=== PATIENT | male | born 1990 | race Caucasian/White ===

== ENCOUNTER 2017-03-11 16:59 | Emergency (ER) | payer SELFPAY ==
[2017-03-11] MEDS ORDERED: LACTATED RINGERS 1,000 ML IVS ONE (17:03)
--- NOTE | 2017-03-11 17:04 | ED.PDOC ---
History of Present Illness - General Time Seen by Provider: 03/11/17 17:01 - History of Present Illness Allergies/Adverse Reactions: Allergies Sulfa Drugs Allergy (Unknown, Verified 01/22/13 09:36) Departure - Departure Disposition: Discharge to Home or Self Care
--- NOTE | 2017-03-11 17:44 | ED.PDOC ---
History of Present Illness - General Chief Complaint: GI Problem Stated Complaint: nausea and vomiting Time Seen by Provider: 03/11/17 17:01 Source: RN notes reviewed, Vital Signs reviewed, police Exam Limitations: clinical condition - History of Present Illness Initial Comments: Keyur Magana 26 y/o male under police custody after he was found to laying down in the middle of the street somebody noticed it and police officers were called and check him and he was noted to be confused after he was questioned by policemen and police noted his eyes were both dilated.The patient on questioning stated that he had diarrhea 2 days ago and feels dehydrated.Denies abusing illicit durgs or alcohol intoxication .he admits smoking marijuana occassionally. Timing/Duration: just prior to arrival Severity: moderate Associated Symptoms: denies symptoms Allergies/Adverse Reactions: Allergies Sulfa Drugs Allergy (Unknown, Verified 03/11/17 17:17) Review of Systems - Review of Systems Unable to Obtain Due To: clinical condition Past Medical History (General) - Patient Medical History Hx Other PMH: Yes - bipolar disorder Surgical History: other - orif left ankle - Vaccination History Hx Tetanus, Diphtheria Vaccination: No Hx Influenza Vaccination: No Hx Pneumococcal Vaccination: No Immunizations Up to Date: No - Social History Hx Tobacco Use: Yes Cigarettes Packs Per Day: 1 Hx Alcohol Use: No Hx Substance Use: No Hx Substance Use Treatment: No Hx Depression: No - Activities of Daily Living Hospice Agency (if applicable):: None - Female History Patient is a Female of Child Bearing Age (10 -59 yrs old): No Patient : No Family Medical History - Family History Mother Family History: Unknown Physical Exam - Physical Exam General Appearance: Alert, Comfortable, No apparent distress, Other - cooperative Eyes, Ears, Nose, Throat Exam: normal ENT inspection, TMs normal, pharynx normal , other - both pupils dilated 6mm Neck: full range of motion, supple, normal inspection Respiratory: chest non-tender, lungs clear, normal breath sounds, no respiratory distress Cardiovascular/Chest: normal peripheral pulses, regular rate, rhythm, no edema, no gallop, no JVD, no murmur Peripheral Pulses: radial,right: 2+, radial,left: 2+ Gastrointestinal/Abdominal: normal bowel sounds, non tender, soft, no organomegaly Extremities Exam: non-tender, normal range of motion, no evidence of injury Neurological: alert, calm, oriented x 3, other - NCAT Behavior/Eye Contact/Speech: cooperative, good eye contact, normal speech Thoughts/Hallucinations: no apparent hallucination Skin Exam: normal color, warm/dry Progress - Results/Orders Results/Orders: Vital Signs - 8 hr 03/11/17 16:59 Temperature 99.7 F H Pulse Rate [ 120 H pulse ox] Respiratory 20 Rate Blood Pressure 106/53 [Left Arm] O2 Sat by Pulse 96 Oximetry 03/11/17 18:00 EKG STAT 03/11/17 18:35 Sodium Bicarbonate 10Meq/10Ml 20 meq Sodium Chloride 0.9% 1000ML [Ns 1000 ml] 1,000 ml IV .QD 03/11/17 18:39 Sodium Chloride 0.9% 1000ML [Ns 1000 ml] 1,000 ml IVS .QD 03/11/17 18:45 Sodium Bicarbonate Vial [Sodium Bicarbonate] 50 meq Sodium Chloride 0.9% 1000ML [Ns 1000 ml] 1,000 ml IVS .QD 03/11/17 18:53 Chest,1 View [RAD] Stat 03/11/17 19:00 EKG STAT 03/11/17 19:07 URINALYSIS Stat Laboratory Results WBC 17.7 K/mm3 (4.8-10.8) H 03/11/17 17:16 RBC 6.05 M/mm3 (4.70-6.10) 03/11/17 17:16 Hgb 17.7 gm/dL (14.0-18.0) 03/11/17 17:16 Hct 52.6 % (42.0-52.0) H 03/11/17 17:16 MCV 87.0 fl (80.0-94.0) 03/11/17 17:16 MCH 29.2 pg (27.0-31.0) 03/11/17 17:16 MCHC 33.6 g/dL (33.0-37.0) 03/11/17 17:16 RDW 14.1 % (11.5-14.5) 03/11/17 17:16 Plt Count 411 K/mm3 (130-400) H 03/11/17 17:16 MPV 8.2 fl (7.40-10.4) 03/11/17 17:16 Absolute Neuts (auto) 14.60 K/uL (1.8-6.8) H 03/11/17 17:16 Absolute Lymphs (auto) 1.70 K/uL (1.0-3.4) 03/11/17 17:16 Absolute Monos (auto) 1.30 K/uL (0.2-0.8) H 03/11/17 17:16 Absolute Eos (auto) 0.00 K/uL (0.0-0.4) 03/11/17 17:16 Absolute Basos (auto) 0.10 K/uL (0.0-0.1) 03/11/17 17:16 Neutrophils % 82.7 % (42.0-78.0) H 03/11/17 17:16 Lymphocytes % 9.6 % (20.0-50.0) L 03/11/17 17:16 Monocytes % 7.3 % (2.0-9.0) 03/11/17 17:16 Eosinophils % 0.0 % (1.0-5.0) L 03/11/17 17:16 Basophils % 0.4 % (0.0-2.0) 03/11/17 17:16 Sodium 135 mmol/L (135-145) 03/11/17 17:16 Potassium 3.0 mmol/L (3.6-5.0) L 03/11/17 17:16 Chloride 95 mmol/L (101-111) L 03/11/17 17:16 Carbon Dioxide 22 mmol/L (21-31) 03/11/17 17:16 Anion Gap 21.0 (12-18) H 03/11/17 17:16 BUN 57 mg/dL (7-18) H 03/11/17 17:16 Creatinine 2.55 mg/dL (0.6-1.3) H 03/11/17 17:16 BUN/Creatinine Ratio 22.4 (10-20) H 03/11/17 17:16 Random Glucose 109 mg/dL (70-105) H 03/11/17 17:16 Serum Osmolality 286.5 mOsm/L (275-295) 03/11/17 17:16 Lactic Acid 1.8 mmol/L (0.5-2.2) 03/11/17 17:58 Calcium 10.6 mg/dL (8.4-10.2) H 03/11/17 17:16 Creatine Kinase 5218 IU/L (38-174) H* 03/11/17 17:56 Salicylates mg/dL (0-29.9) 03/11/17 17:16 Urine Opiates Screen Negative ng/mL (2000) 03/11/17 18:32 Acetaminophen < 10.0 ug/mL (10.0-30.0) L 03/11/17 17:16 Urine Barbiturates Negative ng/mL (200) 03/11/17 18:32 Ur Phencyclidine Scrn Negative ng/mL (25) 03/11/17 18:32 U Amphetamin/Meth Scrn Positive ng/mL (1000) H 03/11/17 18:32 U Benzodiazepines Scrn Negative ng/mL (200) 03/11/17 18:32 U Cocaine Metab Screen Negative ng/mL (300) 03/11/17 18:32 U Cannabinoids Screen Positive ng/mL (50) H 03/11/17 18:32 Ethyl Alcohol < 5.40 mg/dL (0-79) 03/11/17 17:16 2103 h Recommended admission to the hospital explaining to him about his elevated cpk from his methamphtamine use which he had told the nurse but he refused stating that he will just walk away and leave the hospital if he gets hospitalized ;stating he can drink water and was eating yogurt and drinking grape juice;no nausea/vomiting he was watching tv and wanting to call his ex . He also stated that he will be going to [place] in the morning. Vital Signs - 8 hr 03/11/17 03/11/17 03/11/17 16:59 19:00 20:18 Temperature 99.7 F H 97.2 F L Pulse Rate [ 120 H 114 H 75 pulse ox] Respiratory 20 16 Rate Blood Pressure 106/53 137/74 143/69 [Left Arm] O2 Sat by Pulse 96 97 99 Oximetry 2140 patient stated that he had urinated in the sink 3 x now 2251 patient ready to walk out from the room after his girl friend arrived to pick him up - EKG/XRAY/CT EKG: Sinus, Tachy, no ST T wave changes Comments: heart rate-101 Departure - Departure Clinical Impression: Non-traumatic rhabdomyolysis, Methamphetamine use Renal failure, acute Qualifiers: Acute renal failure type: unspecified Qualified Code(s): N17.9 - Acute kidney failure, unspecified Time of Disposition: 22:53 Disposition: Discharge to Home or Self Care Condition: Fair Departure Forms: ED Discharge - Pt. Copy, Patient Portal Self Enrollment Instructions: DI for Dehydration -- Adult Diet: other - INCREASE ORAL FLUID INTAKE Referrals: Tristen Simpson MD [Primary Care Provider] - 1-2 Weeks Additional Instructions: RETURN TO EMERGENCY ROOM NEEDED;INCREASE ORAL FLUID INTAKE
[2017-03-11] MEDS ORDERED: SODIUM CHLORIDE 0.9% IV PRN (18:35)
[2017-03-11] MEDS ORDERED: SODIUM BICARBONATE IV PRN (18:35)
[2017-03-11] MEDS ORDERED: SODIUM CHLORIDE 0.9% 1000ML 1,000 ML IVS PRN (18:39)
[2017-03-11] MEDS ORDERED: SODIUM CHLORIDE 0.9% IVS PRN (18:45)
[2017-03-11] MEDS ORDERED: SODIUM BICARBONATE IVS PRN (18:45)
[2017-03-11] MEDS ORDERED: SODIUM CHLORIDE 0.9% 1000ML 1,000 ML ONE (18:51)
[2017-03-11] MEDS ORDERED: SODIUM BICARBONATE VIAL 50 MEQ/50 ML VIAL ONE (18:51)
--- NOTE | 2017-03-11 19:17 | RAD ---
EXAM DESCRIPTION: Chest,1 View CLINICAL HISTORY: 26 years Male pain COMPARISON: None. FINDINGS: The cardiomediastinal silhouette appears unremarkable. No consolidating infiltrates or pleural effusions. No pneumothorax. Rightward convexity thoracic curvature. IMPRESSION: No acute abnormality is identified. Electronically signed by: Katherine Hurst 03/11/2017 7:18 PM CDT
[2017-03-11] MEDS ORDERED: ONDANSETRON INJ 4 MG/2 ML VIAL ONE (19:30)
[2017-03-11 20:20] VITALS: TEMP 97.2
[2017-03-11] MEDS ORDERED: SODIUM CHLORIDE 0.9% 1000ML 1,000 ML IVS ONE ×2 (20:35→21:23)
[2017-03-11 21:11] VITALS: BP 126/88
[2017-03-11 23:08] VITALS: O2SAT 98
== END 2017-03-11 23:04 | disposition home or self-care (01) ==
LOC: ER 16:59
DX: M62.82 Rhabdomyolysis (principal); N17.9 Acute kidney failure, unspecified; F15.90 Other stimulant use, unspecified, uncomplicated; Z88.2 Allergy status to sulfonamides; F31.9 Bipolar disorder, unspecified; F17.210 Nicotine dependence, cigarettes, uncomplicated
CPT/HCPCS: 36415; 71010; 80048; 80307; 80320; 80329; 81001; 82550; 83605; 85025; 93005; J7030; J7120

== ENCOUNTER 2017-04-12 04:45 | Emergency (ER) | payer SELFPAY ==
--- NOTE | 2017-04-12 04:49 | ED.PDOC ---
History of Present Illness - General Chief Complaint: Upper Extremity Injury Stated Complaint: swelling right middle finger Time Seen by Provider: 04/12/17 04:47 Source: patient Exam Limitations: no limitations - History of Present Illness Initial Comments: Keyur Magana 26 y/o male with history of bipolar disorder and methamphetamine abuse stated that his right middle finger swelling getting worse.Denies any history of trauma or drug injection to the site. Occurred: other - 3-5 days ago Pain - Upper Extremity: moderate: Hand, right Method of Injury: unknown Improving Factors: nothing, rest Worsening Factors: movement Allergies/Adverse Reactions: Allergies Sulfa Drugs Allergy (Unknown, Verified 03/11/17 17:17) Home Medications: Ambulatory Orders Clindamycin HCl 300 mg PO BID #30 cap 04/12/17 Review of Systems - Review of Systems Constitutional: States: no symptoms reported Respiratory: States: no symptoms reported Cardiology: States: no symptoms reported Gastrointestinal/Abdominal: States: no symptoms reported Genitourinary: States: no symptoms reported Musculoskeletal: States: no symptoms reported Skin: States: see HPI Neurological: States: emotional problems Endocrine: States: no symptoms reported Hematologic/Lymphatic: States: no symptoms reported Past Medical History (General) - Patient Medical History Hx Other PMH: Yes - bipolar Surgical History: other - orif ankle fracture - Vaccination History Hx Tetanus, Diphtheria Vaccination: Yes - 2 years ago Hx Influenza Vaccination: No Hx Pneumococcal Vaccination: No - Social History Hx Tobacco Use: Yes Hx Alcohol Use: No Hx Substance Use: Yes - methamphetamine Hx Substance Use Treatment: No Hx Depression: No - Female History Patient : No Family Medical History - Family History Mother Family History: Unknown Physical Exam - Physical Exam General Appearance: Alert, No apparent distress Eyes, Ears, Nose, Throat Exam: normal ENT inspection, TMs normal Neck: non-tender, full range of motion, supple Cardiovascular/Respiratory: regular rate, rhythm, no M/R/G, normal peripheral pulses, no JVD Abdominal Exam: non-tender, no organomegaly Back Exam: normal inspection, no CVA tenderness, no vertebral tenderness Shoulder Exam: normal inspection, no evidence of injury Elbow/Forearm Exam: normal inspection, no evidence of injury Wrist Exam: normal inspection, no evidence of injury Hand Exam: infection - redness with pus formation, limited ROM - pain, soft tissue tenderness - mid finger right Neuro/Tendon: normal sensation, normal motor functions, normal tendon functions Mental Status: alert, oriented x 3 Skin Exam: normal color Progress - Progress Progress: 04/12/17 05:11 Vital Signs - 8 hr 04/12/17 04:49 Temperature 98.1 F Pulse Rate [R 95 H Arm] Respiratory 20 Rate Blood Pressure 126/41 [R Arm] O2 Sat by Pulse 98 Oximetry - EKG/XRAY/CT XRAY: hand - right mid finger soft tissue swelling no fracture no fb Procedures - Incision and Drainage #1 Site: right middle finger Procedure and Prep: betadine prep, sterile drapes applied, sterile dressings applied, gauze wick placed, irrigated, wound culture collected, pus drained - 0.3 cc Blade Size: 11 - metacarpal block done right middle finger Departure - Departure Clinical Impression: Abscess of third finger of right hand Time of Disposition: 05:50 Disposition: Discharge to Home or Self Care Condition: Fair Instructions: DI for Incision and Drainage of a Skin Abscess Referrals: Tristen Simpson MD [Primary Care Provider] - 1-2 Weeks Prescriptions: Clindamycin HCl 300 mg PO BID #30 cap Home Medications: Ambulatory Orders Clindamycin HCl 300 mg PO BID #30 cap 04/12/17 Additional Instructions: RETURN TO [facility] ER 04/13/2017 for REMOVAL OF PACKING
[2017-04-12] MEDS ORDERED: CLINDAMYCIN HCL CAP 150 MG CAP PO ONE (04:50)
[2017-04-12] MEDS ORDERED: CLINDAMYCIN PHOSPHATE 150 MG/ML VIAL IM ONE (04:50)
[2017-04-12] MEDS ORDERED: TETANUS,DIPHTHERIA,PERTUSSIS 1 EA SYG IM ONE (04:51)
[2017-04-12] MEDS ORDERED: LIDOCAINE 1% 10 ML VIAL INJ ONE (05:15)
[2017-04-12] MEDS ORDERED: NEOMYCIN-BACITRACIN-POLYMYXIN 0.9 GM UD TOP ONE (05:27)
--- NOTE | 2017-04-12 05:44 | RAD ---
Procedure: XR HAND 3 OR MORE VIEWS Exam Date: 04/12/2017 Ordering Provider: Paulino Ortiz Clinical Indication: pain Comparison: None Findings: There is no fracture or dislocation. Diffuse soft tissue swelling of the third finger. Articular surfaces of the right hand and visualized wrist are intact. There are no lytic or sclerotic lesions. There is no radiopaque foreign body visualized. There is no subcutaneous gas. Impression: 1. No acute fracture or dislocation in the right hand. 2. Diffuse soft tissue swelling of the third finger. Electronically signed by: Kavin Sommer MD 04/12/2017 5:43 AM CDT
[2017-04-12] MEDS ORDERED: HYDROcodone 10MG/APAP 325MG 1 EA TAB PO ONE (05:54)
[2017-04-12 06:14] VITALS: BP 119/88; TEMP 97; O2SAT 97
== END 2017-04-12 06:10 | disposition home or self-care (01) ==
LOC: ER 04:45
DX: L02.511 Cutaneous abscess of right hand (principal); Z88.2 Allergy status to sulfonamides; F31.9 Bipolar disorder, unspecified; Z87.891 Personal history of nicotine dependence
CPT/HCPCS: 73130; 87070; 87077; 87186; J3490

== ENCOUNTER 2017-06-22 14:07 | Emergency (ER) | payer SELFPAY ==
[2017-06-22 14:17] VITALS: TEMP 97.1
--- NOTE | 2017-06-22 14:18 | ED.PDOC ---
History of Present Illness - General Chief Complaint: Skin/Abrasion/Tear Stated Complaint: red,swollen finger Time Seen by Provider: 06/22/17 14:18 Source: patient, RN notes reviewed, Vital Signs reviewed Additional Information: Right index finger swollen, erythematous with some pus drainage. Pt was in ER 30 Mar 30 with similar problem to middle finger of same hand. He had an I&D performed at that time with a culture which grew out Staph. Aureus (sensitive to Clindamycin and Bactrim). No systemic symptoms currently. No other complaints. Pt states this has developed over a few days. He does appear unkempt with poor hygiene. - History of Present Illness Timing/Duration: 1 week Severity: moderate Improving Factors: nothing Worsening Factors: movement Associated Symptoms: denies symptoms Allergies/Adverse Reactions: Allergies Sulfa Drugs Allergy (Unknown, Verified 03/11/17 17:17) Home Medications: Ambulatory Orders Sulfa/Trimeth 800/160 (Ds) Tab [Bactrim DS Tab] 2 ea PO BID #40 tab 06/22/17 Review of Systems - Review of Systems Constitutional: States: no symptoms reported EENTM: States: no symptoms reported Respiratory: States: no symptoms reported Cardiology: States: no symptoms reported Gastrointestinal/Abdominal: States: no symptoms reported Genitourinary: States: no symptoms reported Musculoskeletal: States: no symptoms reported Skin: States: see HPI Neurological: States: no symptoms reported Endocrine: States: no symptoms reported Hematologic/Lymphatic: States: no symptoms reported Past Medical History (General) - Patient Medical History Hx Stroke: No Hx Congestive Heart Failure: No Hx Diabetes: No Hx Cancer: No Hx Hepatitis C: No Hx MRSA: - ? - Vaccination History Hx Tetanus, Diphtheria Vaccination: Yes - 2 years ago Hx Influenza Vaccination: No Hx Pneumococcal Vaccination: No - Social History Hx Tobacco Use: Yes Hx Chewing Tobacco Use: No Hx Alcohol Use: No Hx Substance Use: Yes - methamphetamine Hx Substance Use Treatment: No Hx Depression: No Hx Physical Abuse: No Hx Emotional Abuse: No Hx Suspected Abuse: No - Female History Patient : No Family Medical History - Family History Mother Family History: Unknown Physical Exam - Physical Exam General Appearance: Alert, Comfortable, No apparent distress - at rest/, Unkempt Eye Exam: bilateral normal Ears, Nose, Throat: hearing grossly normal, normal ENT inspection, normal pharynx Neck: full range of motion, supple Respiratory: no respiratory distress, no accessory muscle use Cardiovascular/Chest: normal peripheral pulses, regular rate, rhythm Gastrointestinal/Abdominal: non tender, soft Back Exam: normal inspection Extremity: inflammation, swelling - distal to 2nd MCP. Pus pocket identified draining spontaneously with crusted dry pus. Neurologic: barrel inspector tight II-XII nml as tested, no motor/sensory deficits, alert, oriented x 3 Lymphatic: no adenopathy Procedures - Incision and Drainage #1 Site: Right Index Finger Procedure and Prep: gauze wick placed, irrigated, pus drained, other - chlorhexadine prep Blade Size: 11 Procedure Comments: Tolerated I&D following digital block. About 3 ml of pus drained. No packing needed. Wound irrigated with 50 ml of NS. Departure - Departure Clinical Impression: Abscess of finger of right hand Time of Disposition: 15:30 Disposition: Discharge to Home or Self Care Condition: Good Departure Forms: ED Discharge - Pt. Copy, Patient Portal Self Enrollment Instructions: DI for Wound Infection, DI for Skin Abscess Referrals: Tristen Simpson MD [Primary Care Provider] - 1-2 Days Prescriptions: Sulfa/Trimeth 800/160 (Ds) Tab [Bactrim DS Tab] 2 ea PO BID #40 tab Home Medications: Ambulatory Orders Sulfa/Trimeth 800/160 (Ds) Tab [Bactrim DS Tab] 2 ea PO BID #40 tab 06/22/17 Additional Instructions: Keep wound and hands clean. Warm soapy soaks two to three times a day. Get the wound looked at in 2 to 3 days. Take full course of antibiotics.
[2017-06-22] MEDS ORDERED: CHLORHEXIDINE GLUCONATE 4 % 15 ML UD TOP ONE ×2 (14:26→14:58)
[2017-06-22 15:30] VITALS: BP 129/86; O2SAT 98
== END 2017-06-22 15:23 | disposition home or self-care (01) ==
LOC: ER 14:07
DX: L02.511 Cutaneous abscess of right hand (principal); L03.011 Cellulitis of right finger; Z87.891 Personal history of nicotine dependence; Z88.2 Allergy status to sulfonamides